=== PATIENT | male | born 1985 | race Caucasian/White ===

== ENCOUNTER 2016-04-27 13:15 | Inpatient (IN) | payer OTHER ==
[~2016-04-27] VITALS: Ht 182.9 cm; Wt 83.0 kg
[~2016-04-27 13:15] MED LIST: AVONEX30 MCG/0.5 IM; CATAPRES0.1 MG PO; CLONIDINE HCL0.1 MG PO; CLONIDINE HCL0.3 MG PO; COPAXONE40 MG/1 ML SC; DRYSOL TP; ERGOCALCIF50000 UNIT PO; FISH OIL 1,0001 EAC7 PO; KLONOPIN0.5 M1 PO; L-ARGININE1000 MG PO; MOTRIN800 MG PO; MULTIPLE VITAM1 EACH PO; NUVIGIL150 MG PO; PLEGRIDY P125 MCG/0. SC; PREDNISONE10 MG PO; SOMA350 MG PO; TORADOL10 MG PO; VALIUM10 MG PO; VALIUM5 MG PO; VYVANSE10 MG PO; VYVANSE50 MG PO
[2016-04-27 13:41] VITALS: BP 137/74
[2016-04-27 13:45] LABS: MCH 30.4 PG (29.0-34.0); MCHC 34.8 G/DL (30.0-36.0); MCV 87.5 FL (86-99); MEAN PLAT.VOLUME 11.3 uM^3 (9.0-12.4); PLATELET COUNT 128 K/uL (156-360); RBC DIS.WIDTH-CV 12.7 % (11.8-14.6); RBC DIS.WIDTH-SD 41.3 % (39-53); WHITE BLOOD COUNT 2.8 K/uL (4.1-10.2)
[2016-04-27 14:00] LABS: ANION GAP 6 MEQ/L (2-14); CHLORIDE 104 MEQ/L (99-109); POTASSIUM 3.5 MEQ/L (3.7-5.4); SAMPLE HEMOLYSIS CHECK 0; SAMPLE ICTERIC CHECK 0; SAMPLE LIPEMIA CHECK 0; SODIUM 141 MEQ/L (136-147)
[2016-04-27 14:06] LABS: GFR ESTIMATE (CALCULATED) > 59 mL/min/; GLUCOSE 87 mg/dL (70-99); UREA NITROGEN (BUN) 13 mg/dL (9-23)
[2016-04-27 21:25] VITALS: BP 120/67
[2016-04-28 00:04] VITALS: BP 108/51
[2016-04-28 00:08] VITALS: BP 170/81
[2016-04-28 04:41] VITALS: BP 109/58
[2016-04-28 07:49] VITALS: BP 126/74
[2016-04-28] MEDS ORDERED: DIAZEPAM5 MG PO (08:42)
[2016-04-28] MEDS ORDERED: PERCOCET 5/31 TABLET PO (08:42)
== END 2016-04-28 09:47 | disposition home or self-care (01) | DRG 473 ==
LOC: SDC 13:15 → 2SOUTH 19:09 → 3EAST 21:15
PROVIDERS: Neurological Surgery
DX: M50.123 Cervical disc disorder at C6-C7 level with radiculopathy (principal); M47.22 Other spondylosis with radiculopathy, cervical region; G35 Multiple sclerosis; I10 Essential (primary) hypertension; F17.200 Nicotine dependence, unspecified, uncomplicated
CPT/HCPCS: 72040; 76000; 80048; 85027; 93005; C1713; J0131; J0330; J0690; J1170; J2405; J3010; J3480

== ENCOUNTER 2016-08-13 21:03 | Emergency (ER) | payer OTHER ==
[~2016-08-13] VITALS: Ht 182.9 cm; Wt 81.0 kg
[~2016-08-13 21:03] MED LIST changes: +DIAZEPAM5 MG PO; +PERCOCET 5/31 TABLET PO
[2016-08-13] MEDS ORDERED: MOTRIN800 MG PO (22:29)
[2016-08-13] MEDS ORDERED: PERCOCET 5/31 TABLET PO (22:29)
[2016-08-13 22:36] VITALS: BP 153/105
== END 2016-08-13 22:37 | disposition home or self-care (01) ==
LOC: EXP 21:03 → EME 21:03 → EXP 22:37
DX: S93.401A Sprain of unspecified ligament of right ankle, initial encounter (principal); W10.9XXA Fall (on) (from) unspecified stairs and steps, initial encounter; I10 Essential (primary) hypertension; E10.9 Type 1 diabetes mellitus without complications
CPT/HCPCS: 73610; 99281; 99283